=== PATIENT | male | born 1960 | race Caucasian/White ===

== ENCOUNTER 2018-07-13 10:09 | Outpatient (CLI) | payer OTHER, SELFPAY ==
[2018-07-13 11:54] LABS: Cholesterol 198 mg/dL (50-200); Glucose 99 mg/dL (70-100); HDL Cholesterol 49 mg/dL (40-60); LDL CHOLESTEROL 133 mg/dL (<100); Triglyceride 68 mg/dL (30-150)
[2018-07-13 12:05] LABS: Uric Acid 7.1 mg/dL (3.5-7.2)
== END 2018-07-13 10:29 ==
PROVIDERS: PCP General Practice; Visit Provider General Practice
DX: R73.09 Other abnormal glucose (principal); M10.9 Gout, unspecified
CPT/HCPCS: 36415; 80061; 82947; 83721; 84550

== ENCOUNTER 2018-10-24 14:21 | Outpatient (CLI) | payer OTHER, SELFPAY ==
[2018-10-24 14:55] LABS: HCT 40.3 % (40.0-50.0); HGB 13.1 g/dL (13.5-17.5); Mean Corp. HGB Concentration 32.5 g/dL (32.0-36.0); Mean Corpuscular Hemoglobin 29.8 pg (27.0-33.0); Mean Corpuscular Volume 91.6 fL (80-95); Mean Platelet Volume 11.5 fL (8.0-11.0); Platelet Count 239 x1000/uL (130-400); RBC Distribution Width 14.2 % (11.8-14.1); White Blood Cell Count 6.55 k/cumm (4.4-10.8)
[2018-10-24 15:41] LABS: Uric Acid 7.3 mg/dL (3.5-7.2)
[2018-10-24 16:19] LABS: ESR 62 MM/HR (1-20)
[2018-10-25 10:44] LABS: Rheumatoid Factor 18 IU/mL (<12.5)
[2018-10-25 11:31] LABS: ANA Interpretation Negative (NEGAT)
== END 2018-10-24 14:41 ==
PROVIDERS: PCP General Practice; Visit Provider General Practice
DX: M19.90 Unspecified osteoarthritis, unspecified site (principal)
CPT/HCPCS: 36415; 85027; 85652; 84550; 86038; 86431

== ENCOUNTER 2018-11-21 10:06 | Outpatient (CLI) | payer OTHER, SELFPAY ==
[2018-11-22 10:09] LABS: PSA, Screening 28.6 ng/ml (0-3.5)
== END 2018-11-21 10:26 ==
PROVIDERS: PCP General Practice; Visit Provider General Practice
DX: R30.0 Dysuria (principal); N39.0 Urinary tract infection, site not specified; Z12.5 Encounter for screening for malignant neoplasm of prostate
CPT/HCPCS: 36415; 84153; 81003; 87086

== ENCOUNTER 2018-11-21 10:46 | Outpatient (REF) | payer OTHER, SELFPAY ==
[2018-11-21 13:12] LABS: Bilirubin Negative (Negative); Blood Small (Negative); Clarity Sl Cloudy; Glucose Negative (Negative); Ketones Negative (Negative); Leukocyte Esterase Moderate (Negative); Nitrite Negative (Negative); Urobilinogen 0.2 EU/dL (Up TO 0.2); pH 5.5 (5-8)
[2018-11-21 13:52] LABS: Bacteria Moderate HPF (Negative); C & S Indicated? C&S Done As Ordered; Casts Negative LPF (Negative); Crystals Negative HPF (Negative); Epithelial Cells Few HPF (Negative); Mucus Negative (Negative); WBC >50 HPF (0-5)
== END 2018-11-21 11:06 ==
LOC: LBN 10:46
PROVIDERS: PCP General Practice; Visit Provider General Practice
DX: R30.0 Dysuria (principal); N39.0 Urinary tract infection, site not specified
CPT/HCPCS: 87077; 81003; 81015; 87086; 87186

== ENCOUNTER 2019-01-13 16:18 | Outpatient (CLI) | payer OTHER, SELFPAY ==
[2019-01-15 18:48] LABS: Free PSA/PSA Ratio 0.06 ratio
== END 2019-01-13 16:38 ==
PROVIDERS: PCP General Practice; Visit Provider Urology
DX: R97.20 Elevated prostate specific antigen [PSA] (principal)
CPT/HCPCS: 36415; 84154

== ENCOUNTER 2020-04-30 02:54 | Outpatient (CLI) | payer OTHER, SELFPAY ==
[2020-04-30 08:32] LABS: Anion Gap 8.9 mmol/L (3-11); BUN 10 mg/dL (7-18); CO2 28.1 mmol/L (21.0-32.0); CREATININE 0.85 mg/dL (0.70-1.30); Calculated LDL 151 mg/dL (<100); Chloride 103 mmol/L (98-107); Cholesterol 240 mg/dL (<200); Glucose 102 mg/dL (74-106); HDL Cholesterol 53 mg/dL (40-60); Potassium 4.6 mmol/L (3.5-5.1); Sodium 140 mmol/L (136-145); Triglyceride 184 mg/dL (<150)
[2020-04-30 08:55] LABS: Uric Acid 7.3 mg/dL (3.5-7.2)
== END 2020-04-30 03:14 ==
PROVIDERS: PCP Internal Medicine; Visit Provider Internal Medicine
DX: E78.00 Pure hypercholesterolemia, unspecified (principal); M10.9 Gout, unspecified
CPT/HCPCS: 36415; 80048; 80061; 84550

== ENCOUNTER 2020-11-05 02:00 | Outpatient (CLI) | payer OTHER, SELFPAY ==
[2020-11-05 09:14] LABS: Uric Acid 7.5 mg/dL (3.5-7.2)
== END 2020-11-05 02:01 | disposition home or self-care (01) ==
LOC: LBO 02:00
PROVIDERS: PCP Internal Medicine; Visit Provider Internal Medicine
DX: M10.9 Gout, unspecified (principal)
CPT/HCPCS: 36415; 84550

== ENCOUNTER 2021-01-18 09:39 | Outpatient (CLI) | payer OTHER, SELFPAY ==
[2021-01-18 12:13] LABS: Uric Acid 4.8 mg/dL (3.5-7.2)
== END 2021-01-18 09:40 | disposition home or self-care (01) ==
LOC: LBO 09:41
PROVIDERS: PCP Internal Medicine; Visit Provider Internal Medicine
DX: M10.9 Gout, unspecified (principal)
CPT/HCPCS: 36415; 84550

== ENCOUNTER 2021-03-11 19:12 | Outpatient (REF) | payer OTHER, SELFPAY | END 2021-03-11 19:13 | disposition home or self-care (01) | LOC: LBN 19:12 | PROVIDERS: PCP Internal Medicine; Visit Provider Urology | DX: C61 Malignant neoplasm of prostate (principal) | CPT/HCPCS: 87086 ==

== ENCOUNTER 2021-11-03 03:45 | Outpatient (CLI) | payer OTHER, SELFPAY ==
[2021-11-07 11:45] LABS: PSA, Ultrasensitive <0.01 ng/mL (<= 4.5)
== END 2021-11-03 03:46 | disposition home or self-care (01) ==
LOC: LBO 03:45
PROVIDERS: PCP Internal Medicine; Visit Provider Urology
DX: C61 Malignant neoplasm of prostate (principal)
CPT/HCPCS: 36415; 84153

== ENCOUNTER 2021-12-02 01:53 | Outpatient (CLI) | payer OTHER, SELFPAY ==
[2021-12-02 14:05] LABS: Anion Gap 11.8 mmol/L (3-11); BUN 11 mg/dL (7-18); CO2 26.2 mmol/L (21.0-32.0); CREATININE 0.8 mg/dL (0.70-1.30); Calcium 9.1 mg/dL (8.5-10.1); Calculated LDL 184 mg/dL (<100); Chloride 101 mmol/L (98-107); Cholesterol 269 mg/dL (<200); Glucose 100 mg/dL (74-106); HDL Cholesterol 62 mg/dL (40-60); Potassium 4.5 mmol/L (3.5-5.1); Sodium 139 mmol/L (136-145); Triglyceride 118 mg/dL (<150)
[2021-12-02 14:17] LABS: Uric Acid 4.4 mg/dL (3.5-7.2)
== END 2021-12-02 01:54 | disposition home or self-care (01) ==
LOC: LBO 01:53
PROVIDERS: PCP Internal Medicine; Visit Provider Internal Medicine
DX: E78.00 Pure hypercholesterolemia, unspecified (principal); M10.9 Gout, unspecified; R03.0 Elevated blood-pressure reading, without diagnosis of hypertension
CPT/HCPCS: 36415; 80048; 80061; 84550

== ENCOUNTER 2022-05-11 14:52 | Outpatient (REF) | payer OTHER, SELFPAY ==
[2022-05-11 15:17] LABS: Abs Immature Grans 0.01 10^3/uL (0.0-0.06); Absolute Eosinophil Count 0.31 10^3/uL (0.0-0.7); Absolute Lymphocyte Count 2.35 10^3/uL (1.2-3.4); Absolute Monocyte Count 0.65 10^3/uL (0.1-0.8); Absolute Neutrophil Count 3.98 10^3/uL (1.2-6.7); Basophils % 1.4; Eosinophils % 4.2; HCT 42.5 % (40.0-50.0); HGB 14.1 g/dL (13.5-17.5); Immature Grans % 0.1; Lymphocytes % 31.8; MCH 30.7 pg (27.0-33.0); MCHC 33.2 % (32.0-36.0); MCV 92 fL (80-95); Monocytes % 8.8; Neutrophils % 53.7; RDW 12.5 % (11.8-14.1); RDW-SD 42.5 fL
[2022-05-11 15:43] LABS: Ferritin 80 ng/mL (26-388)
== END 2022-05-11 14:53 | disposition home or self-care (01) ==
LOC: LBN 14:52
PROVIDERS: PCP Internal Medicine; Visit Provider Surgery
DX: D64.9 Anemia, unspecified (principal); E78.5 Hyperlipidemia, unspecified; F17.200 Nicotine dependence, unspecified, uncomplicated; K21.9 Gastro-esophageal reflux disease without esophagitis
CPT/HCPCS: 82728; 85025

== ENCOUNTER 2022-12-18 04:18 | Outpatient (CLI) | payer OTHER, SELFPAY ==
[2022-12-18 08:53] LABS: BUN 12 mg/dL (7-18); CREATININE 0.8 mg/dL (0.70-1.30); Calculated LDL 89 mg/dL (<100); Chloride 104 mmol/L (98-107); Cholesterol 195 mg/dL (<200); Estimated GFR 99.44 (mL/min/1.73m2); Glucose 113 mg/dL (74-106); HDL Cholesterol 50 mg/dL (40-60); Potassium 3.5 mmol/L (3.5-5.1); Sodium 140 mmol/L (136-145); Triglyceride 280 mg/dL (<150)
[2022-12-20 11:38] LABS: PSA, Ultrasensitive <0.01 ng/mL (<= 4.5)
== END 2022-12-18 04:19 | disposition home or self-care (01) ==
PROVIDERS: PCP Nurse Practitioner Adult Health; Referring Provider Nurse Practitioner Adult Health; Visit Provider Urology
DX: E78.5 Hyperlipidemia, unspecified (principal); M10.9 Gout, unspecified; C61 Malignant neoplasm of prostate
CPT/HCPCS: 36415; 80048; 80061; 84153

== ENCOUNTER 2023-04-18 08:21 | Day surgery (SDC) | payer OTHER, SELFPAY ==
[2023-04-18 08:31] VITALS: BP 117/78; PULSE 87; RESP 17; TEMP 36.6; O2SAT 94
[2023-04-18] MEDS: Lactated Ringers 1,000 ML 80 ML IV (08:46)
--- NOTE | 2023-04-18 10:17 | SCONE_ITS ---
Date of service: 04/18/23 Time of Service: Assessment and Plan Assessment and plan (1) Encounter for colonoscopy due to history of adenomatous colonic polyps: Status: Acute Assessment and plan: Colonoscopy History of Present Illness Narrative: 62-year-old man is here for a follow-up colonoscopy. He has had 2 prior colonoscopies and did have a polyp on the first on but his last colonoscopy was normal. He does not have any symptoms. Only intra-abdominal surgical history is that of a prostatectomy. There is no family history of colon cancer. 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) [place] cardiac risk 10-20% in next 10 years (Chronic) 14% 2021 Smoker (Chronic ~2021) 9-10 pk yrs in 2021 Gout (Chronic) GERD (gastroesophageal reflux disease) (Chronic) Hyperlipidemia (Chronic) Medical History Erectile dysfunction following radical prostatectomy 09/05/22 Urology COVID (~08/2022) 09/03/22 Anemia 2019--r/t prostate cancer Malignant neoplasm of prostate prostatectomy; pT2 N0N0,grade group 2, negative margins Left leg pain h/o fracture Elevated PSA Duodenal ulcer (~2001) Esophagitis History of fracture Left Tib-Fib Acne Surgical History S/P [place]ctomy (03/23/21) [place] [facility] [place]aden[place] History of inguinal herniorrhaphy (~1988) Left Family History Father , ~71yo; s/p CABD & valve replacement Prostate cancer Depression Heart disease Mother , OF CANCER BUT TYPE UNKNOWN Diabetes Sister No problems noted. Sister No problems noted. Brother , MVA IN HIS 30's No problems noted. Social History (Updated 09/06/23 @ 10:25 by JOEL Copeland) Smoking/Tobacco Use Status: Current every day Tobacco Type: cigarettes Tobacco: How many years used: 30 Quit status: has quit before Smoking risk assessment performed?: Yes Alcohol Intake: current Alcohol Intake frequency: a few times a week Substance use type: does not use Adopted: No Caregiver/Support person: No Foster care: No Household members: spouse Housing: house Number of Children: 3 number of grandchildren: 3 Communication Needs: Corrective Lenses Education Level: high school Do you need help understanding health information?: Never current occupation: [employer] Pets and animals: Yes Pets and animals: cat(s) Sexually active: Yes Do you think of yourself as: straight/heterosexual Current gender identity: male What is your relationship status?: How often do you talk on the phone with friends or family?: three or more times per week How often do you get together with friends or relatives?: twice per week Do you belong to any clubs or organized social groups?: no Panel score (0-1 are the most socially isolated patients): 2 What type of physical activity do you participate in: none Seatbelt use: always Helmet use: Yes Drive intox or ride w/intox city route driver: No Working smoke detector in home: Yes Fire extinguisher in home: Yes Carbon monox detector in home: Yes Do you feel safe at home: Yes Do you feel safe in your relationship?: Yes Exam Narrative Exam Narrative: General: Nontoxic, comfortable and interactive Neuro: Alert and oriented x3 Psych: Good mood and affect, good insight and understanding into his condition Chest: Nonlabored breathing Heart: Regular Results Last Vital Signs Temp 97.9 F 04/18/23 08:31 Pulse 87 04/18/23 08:31 Resp 17 04/18/23 08:31 BP 117/78 04/18/23 08:31 Pulse Ox 94 04/18/23 08:31
--- NOTE | 2023-04-18 10:27 | ANES.PREOP_ITS ---
General Info Date of Service Date Performed: 04/18/23 Height: 5 ft 10 in Weight: 92.5 kg Body Mass Index (BMI): 29.2 Surgical Procedure: Operation Date: 04/18/23 09:50 Proposed Procedure Side Surgeon p Colonoscopy Gilles Valenzuela MD Actual Procedure Side Surgeon p Colonoscopy Not Applicable Gilles Valenzuela MD Meds Allergies and Home Medications Allergies Allergy/AdvReac Type Severity Reaction Status Date / Time No Known Allergies Allergy Verified 04/18/23 08:38 Home Medication Medication Instructions Recorded aspirin 81 mg tablet,delayed 81 mg PO DAILY 04/16/20 release omeprazole magnesium 20 mg 20 mg PO DAILY 04/16/20 tablet,delayed release (Prilosec OTC) bisacodyl 5 mg tablet,delayed 5 mg PO ONCE colonscopy bowel prep 05/11/22 release (Dulcolax (bisacodyl)) #4 tabs polyethylene glycol 3350 17 238 g PO ONCE colonoscopy prep 05/11/22 gram/dose oral powder #238 grams allopurinol 300 mg tablet 300 mg PO DAILY #90 tabs 06/05/22 sildenafil (pulm.hypertension) 20 20 mg PO DIRECTED PRN 09/05/22 mg tablet (Revatio) atorvastatin 40 mg tablet 40 mg PO DAILY #90 tabs 12/07/22 Current Visit Medications: Current Medications Generic Name Dose Route Start Last Admin Trade Name Ebenezerq PRN Reason Stop Dose Admin Ringer's Solution 1,000 mls @ 80 mls/hr 04/18/23 06:00 04/18/23 08:46 IV 05/17/23 23:59 80 mls/hr INFUSION DIANE Administration IV Miscellaneous Supplies 1 each 04/18/23 06:00 Iv Access IV 05/17/23 23:59 DIRECTED DIANE Sodium Chloride 0 ml 04/18/23 06:00 Normal Saline Flush 10 Ml Syr IV 05/17/23 23:59 PRN PRN Sodium Chloride 0 ml 04/18/23 06:00 Normal Saline 10 Ml Vial IJ 05/17/23 23:59 DIRECTED PRN Sterile Water 0 ml 04/18/23 06:00 Water,Injection,Sterile 10 Ml Vial IJ 05/17/23 23:59 DIRECTED PRN PFSH Active Problems Active Problems: Problem Status Onset Code Hypertriglyceridemia ~11/2022 E78.1 IFG (impaired fasting glucose) ~11/2022 R73.01 History of prostate cancer ~2018 Z85.46 Encounter for colonoscopy due to history of adenomatous colonic polyps Z12.11, Z86.010 Elevated blood pressure reading without diagnosis of hypertension R03.0 Congenital pes planus of both feet Q66.51, Q66.52 [place] cardiac risk 10-20% in next 10 years Z91.89 Smoker ~2021 F17.200 Gout M10.9 GERD (gastroesophageal reflux disease) K21.9 Hyperlipidemia E78.5 Medical History Medical History Erectile dysfunction following radical prostatectomy 09/05/22 Urology COVID (~08/2022) 09/03/22 Anemia 2019--r/t prostate cancer Malignant neoplasm of prostate prostatectomy; pT2 N0N0,grade group 2, negative margins Left leg pain h/o fracture Elevated PSA Duodenal ulcer (~2001) Esophagitis History of fracture Left Tib-Fib Acne Surgical History Surgical History S/P [place] (03/23/21) [place] [facility] [place]aden[place] History of inguinal herniorrhaphy (~1988) Left Tobacco Smoking/Tobacco Use Status: Current every day Tobacco Type: cigarettes Smoking cigarettes per day: 5 Passive smoking exposure: No Alcohol Alcohol Intake: current Alcohol intake frequency: a few times a week Substance Use Substance use type: does not use Vital Signs and Lab Results Vital Signs Most Recent Vital Signs in EMR: Most Recent Vital Signs Temp Pulse Resp BP Pulse Ox 36.6 C 87 17 117/78 94 04/18/23 08:31 04/18/23 08:31 04/18/23 08:31 04/18/23 08:31 04/18/23 08:31 Lab Results Blood Type / Crossmatch: No Data to Display Complete Blood Count: No Data to Display Complete Metabolic Panel: No Data to Display Liver Function Panel: No Data to Display Coagulation Panel: No Data to Display Cardiac Panel: No Data to Display Arterial Blood Gas: No Data to Display Venous Blood Gas: No Data to Display Pancreas Panel: No Data to Display Thyroid Panel: No Data to Display Infectious Disease: No Data to Display Blood Cultures: No Data to Display Toxicology Panel: No Data to Display Anesthesia Assessment and Plan Anesthesia History Personal History: No History of Anesthesia Complications Family History: No Family History of Anesthesia Complications Exercise Tolerance Exercise Tolerance: Metabolic Equivalents>4 Pertinent Negatives Pertinent Negatives: No Symptoms of GERD Cardiac & Pulmonary Exam Cardiac Exam: Normal S1/S2 Heart Sounds Pulmonary Exam: Clear Bilateral Breath Sounds Implantable Cardiac Device Does patient have a Pacemaker or an ICD?: No Airway Exam Known Difficult Airway: No Mallampati Class: 2 Mouth Opening: Normal (> 3cm) Thyromental Distance: Greater than 3 cm Neck Range of Motion: Full ROM Neck Circumference: Normal Teeth Condition: Normal Dentition ASA Classification ASA Score: ASA 2 Emergency Case?: No NPO Status NPO Status: NPO Clears >2 hours, Solids >8 hours Anesthesia Plan Resuscitation Status: Full Code Anesthesia Technique: General Anesthesia Airway Planned: Natural Airway Monitors Used: Standard Monitors
[2023-04-18 10:28] VITALS: BMI 29.2
--- NOTE | 2023-04-18 10:59 | BOWEL_PTH ---
PATIENT: Roberto Granados LOC: [facility] U#:[id number] AGE/SX: 62/M ROOM: RE04/18/[address]: Gilles Valenzuela : 1960 BED: DIS: 04/18/2023 SPEC #: [id number] RECD: 04/18/23 12:38 STATUS: DARNELL REQ #: [id number] SUSSY: 04/18/23 10:[address]: Gilles Valenzuela DEPT: Surgical Specimen RECD BY: Telma Casiano ENTERED: 04/18/23 12:39 SP TYPE: Bowel OTHR DR: Alley Shanks APRN Tissues: 1 - BIOPSY BOWEL 2 - BIOPSY BOWEL Procedures: GROSS AND MICRO LEVEL 4 Comments: [id number]
[2023-04-18 11:18] VITALS: BP 102/83; PULSE 72; RESP 18; TEMP 36.4; O2SAT 97
--- NOTE | 2023-04-18 11:24 | W.COLOREPORT ---
Date of service: 04/18/23 Time of Service: 11:24 Colonoscopy Report Procedure Description: Procedures performed: 1. Colonoscopy with snare polypectomy x1 2. Cold forceps polypectomy x1 Preoperative diagnosis: Surveillance colonoscopy, colon polyps Postoperative diagnosis: Colon polyps, moderate sigmoid diverticulosis, mild grade 1 internal hemorrhoids Surgeon: Laura Valenzuela Anesthesia: Catalino Indication for procedure: Patient is a 62-year-old man with a history of an adenomatous polyp removed in the past, no family history of colon cancer and no symptoms. Last colonoscopy was normal. Findings: Normal TI. In the transverse colon a 3-5 mm sessile polyp was removed piecemeal with cold forceps technique. In the descending colon another 3-5 mm sessile polyp was removed with hot snare technique. Significant diverticular disease focused only in the sigmoid colon region with no active diverticulitis. Mild grade 1 internal hemorrhoid disease seen Surveillance/follow-up recommendations: 3-10 years depending on path results. If sessile serrated or villous histology (not suspected) then 3 years but otherwise 7 to 10 years of simple adenomas Complications: None Blood loss: Minimal Specimens:?? YES Quality of Prep:?? Good Procedure in detail: Written consent was obtained from the patient who was in agreement with the risks, benefits and indications of the procedure.? We went to the endoscopy suite and laid the patient in left lateral decubitus position.? Anesthesia was administered which was tolerated well.? A timeout was performed and when we are all in agreement we began the procedure. Digital rectal exam and visual examination was performed and within normal limits.? A well?lubricated colonoscope was advanced without difficulty all the way to the cecum identified by the ileocecal valve, and triangular folds and appendiceal orifice.? The terminal ileum was briefly intubated and look normal. The scope was then slowly withdrawn.?? Retroflexion was performed in the rectum.? The findings/interventions are noted above. The scope was then removed and the patient tolerated the procedure well and was then taken back to the PACU in hemodynamically stable condition.
--- NOTE | 2023-04-18 11:29 | W.ANESPOSTOP ---
Postoperative Evaluation Date, Time and Location Date Performed: 04/18/23 Time Performed: 11:29 Patient Location: Day Surgery Unit Vital Signs Most Recent Imported Vital Signs: Most Recent Vital Signs Temp Pulse Resp BP Pulse Ox 36.4 C L 72 18 102/83 97 04/18/23 11:18 04/18/23 11:18 04/18/23 11:18 04/18/23 11:18 04/18/23 11:18 Pain Score Most Recent Pain Score: Most Recent Pain Score Pain Level 0 04/18/23 11:18 Assessment Mental Status: Awake (Alert & Oriented to Patient Baseline) Airway and Respiratory Function: Patent airway with normal (patient baseline) respiratory exam Cardiovascular Function: Hemodynamically Stable Hydration Status: Adequately Hydrated Nausea & Vomiting: No Nausea or Vomiting Pain: Pt. Denies Any Pain Peripheral Nerve Block: Patient did not receive a nerve block
--- NOTE | 2023-04-18 11:31 | W.PM.DSUDISC ---
Date of service: 04/18/23 Time of Service: 11:31 Discharge Plan Disposition Patient Disposition: Home Condition: Good Discharge Details Attending Provider: Gilles Valenzuela Primary Care Provider: Alley Shanks Home Meds and New Rx's Prescriptions: No Action polyethylene glycol 3350 17 gram/dose powder 238 g PO ONCE Qty: 238 0RF Rx Instructions: take per colonoscopy instructions bisacodyl [Dulcolax (bisacodyl)] 5 mg tablet,delayed release (DR/EC) 5 mg PO ONCE Qty: 4 0RF Rx Instructions: take per colonoscopy instructions allopurinol 300 mg tablet 300 mg PO DAILY Qty: 90 3RF atorvastatin 40 mg tablet 40 mg PO DAILY Qty: 90 3RF omeprazole magnesium [Prilosec OTC] 20 mg tablet,delayed release (DR/EC) 20 mg PO DAILY aspirin 81 mg tablet,delayed release (DR/EC) 81 mg PO DAILY sildenafil (pulm.hypertension) [Revatio] 20 mg tablet 20 mg PO DIRECTED PRN Rx Instructions: 1-5 tabs po daily as needed prior to sexual activity. Can increase by one tab per day up to 5 tabs Discharge Instructions Stand Alone Forms: Colonoscopy Post Instructions Activity:: Activity as Tolerated Diet:: As Tolerated DS: Diagnosis Discharge Diagnosis (1) Encounter for colonoscopy due to history of adenomatous colonic polyps: Status: Acute Asessment and Plan: 2 small polyps were found and removed today. Depending on the type that they are dictates when your next colonoscopy should be done. Anywhere from 3 to 10 years. You will get called in the next couple of weeks to inform you but probably 7 to 10 years will be recommended. Mild diverticular disease was found today which is extremely common, benign and nothing needs to be done about it unless you are having symptoms from it. Mild hemorrhoidal disease was seen today. This is also benign and nothing needs to be done about it as long as you are not having symptoms about it.
[2023-04-18 11:33] VITALS: BP 119/77; PULSE 72; RESP 18; TEMP 36.3; O2SAT 95
== END 2023-04-18 11:40 | disposition home or self-care (01) ==
PROVIDERS: PCP Nurse Practitioner Adult Health; Visit Provider Student in an Organized Health Care Education/Training Program
PROC: 0DJD8ZZ Inspection of Lower Intestinal Tract, Via Natural or Artificial Opening Endoscopic (ICD-10-PCS; CPT 45378; principal; 2023-04-18 09:45)
DX: Z12.11 Encounter for screening for malignant neoplasm of colon (principal); Z86.010 Personal history of colon polyps; K21.9 Gastro-esophageal reflux disease without esophagitis; K64.0 First degree hemorrhoids; K57.30 Diverticulosis of large intestine without perforation or abscess without bleeding; Z85.46 Personal history of malignant neoplasm of prostate; F17.200 Nicotine dependence, unspecified, uncomplicated; D12.3 Benign neoplasm of transverse colon
CPT/HCPCS: 45385; 45380; 00123; 88305; J2001

== ENCOUNTER → 2023-05-28 19:05 | Outpatient (CLI) | payer OTHER, SELFPAY ==
--- NOTE | 2023-05-28 13:30 | DI.RAD_ITS ---
Exam(s) XR CHEST 2V PA LATERAL EXAM: XR CHEST 2V PA LATERAL CLINICAL HISTORY: cough R05.9 TECHNIQUE: 2D digital imaging was performed of the chest. Two images were obtained. PA and lateral views were obtained. COMPARISON: No exams were available for comparison FINDINGS: MEDIASTINUM: Normal. HEART: Normal. PULMONARY VASCULATURE: Normal. LUNGS: Clear. PLEURAL SPACE: No pleural effusion or pneumothorax. BONE:Within normal limits for the patient's age. OTHER FINDINGS:Normal. IMPRESSION: No acute pulmonary findings. DATA REPOSITORY: RADIATION DOSE DELIVERED:
== END ==
PROVIDERS: PCP Nurse Practitioner Adult Health; Visit Provider Emergency Medicine
DX: R05.9 Cough, unspecified (principal)
CPT/HCPCS: 71046

== ENCOUNTER → 2023-06-26 00:47 | Outpatient (CLI) | payer OTHER, SELFPAY ==
[2023-06-26 14:00] LABS: CREATININE 0.8 mg/dL (0.70-1.30); Estimated GFR 98.83 (mL/min/1.73m2)
--- NOTE | 2023-06-26 14:12 | DI.RAD_ITS ---
Exam(s) XR SINUS COMPLETE 3+V EXAM: XR SINUS COMPLETE 3+V CLINICAL HISTORY: cough, R05.9 TECHNIQUE: 2D digital imaging was performed. COMPARISON: No exams were available for comparison FINDINGS: No visible sinus opacification or air-fluid levels. No evidence of fracture or bony erosions. IMPRESSION: Negative sinus series
[2023-06-26] MEDS: Omnipaque 350 MG/ML 100 ML BTL 70 ML IJ (15:21)
[2023-06-26] MEDS: Normal Saline - Diluent 50 ML VIAL IJ (15:21)
--- NOTE | 2023-06-26 15:30 | DI.CT_ITS ---
Exam(s) CT CHEST W EXAM: CT CHEST W CLINICAL HISTORY: cough, CHEST PAIN MADE WORSE BY BREATHING, R07.1, R05.9 TECHNIQUE: Imaging Protocol: Axial computed tomography images with coronal and sagittal reformatted images were created and reviewed CONTRAST MATERIAL: Intravenous: Omnipaque 350 Contrast volume:70 ml. COMPARISON: CR XR CHEST 2V PA LATERAL from 05/28/2023 FINDINGS: Pulmonary parenchyma: Minimal basilar scarring or atelectasis. No consolidation. No dominant measur able mass. Tracheobronchial tree: No bronchiectasis or mucous plugging. Mediastinum and Tammy: No dominant adenopathy or fluid collection. Pleura: No effusion. No pneumothorax. Heart: The heart is mildly dilated. Mild coronary artery calcifications are seen. Aorta: Thoracic aorta non-dilated. Mild atherosclerotic changes. Upper abdomen: No acute findings.. Enlarged fatty liver. Bones: Degenerative changes in the spine. Soft tissues: Unremarkable. IMPRESSION: No acute pulmonary abnormality. RADIATION DOSE DELIVERED: Total DLP DATA REPOSITORY: All CT scans at this facility are submitted to the National Radiology Data Registry (NRDR) Dose Index Registry (DIR) with the [employer] (A[employer]). RADIATION OPTIMIZATION: All CT scans at this facility use at least one of these dose optimization te chniques: automated exposure control; mA and/or kV adjustment per patient size (includes targeted exa ms where dose is matched to clinical indication); or iterative reconstruction.
== END ==
PROVIDERS: PCP Nurse Practitioner Adult Health; Visit Provider Emergency Medicine
DX: R05.9 Cough, unspecified (principal); R07.1 Chest pain on breathing
CPT/HCPCS: 70220; 71260; 82565; J3490

== ENCOUNTER 2023-06-26 04:21 | Outpatient (CLI) | payer OTHER, SELFPAY ==
[2023-06-26] MEDS: Inhaler, Assist Device 1 EACH MC (16:42)
[2023-06-26] MEDS: Levalbuterol HFA 15 GM INH 4 PUFF IH (16:42)
--- NOTE | 2023-06-28 12:11 | W.PFT ---
Date of service: 06/26/23 Time of Service: 15:37 Pulmonary Function Test Result Indications: Chronic cough Interpretation Spirometry: No airflow limitation. No bronchodilator response. Lung Volumes: Normal lung volumes Diffusion Capacity: Normal diffusion Airway Pressure: Normal airways resistance Impression Normal pulmonary function. Clinical Correlation therefore is recommended.
== END 2023-06-26 04:22 | disposition home or self-care (01) ==
LOC: RT 04:21
PROVIDERS: PCP Nurse Practitioner Adult Health; Visit Provider Emergency Medicine
DX: R05.3 Chronic cough (principal)
CPT/HCPCS: 94060; 94726; 94729

== ENCOUNTER 2023-07-17 05:02 | Outpatient (CLI) | payer OTHER, SELFPAY ==
--- NOTE | 2023-07-17 11:55 | W.PFT ---
Date of service: 07/17/23 Time of Service: 10:01 Pulmonary Function Test Result Indications: Cough Interpretation Spirometry: There is no airflow limitation at baseline. There was a 16% decrease in FEV1 with administration of 16mg/mL methacholine. Impression Normal spirometry. Negative methacholine challenge testing. Clinical Correlation therefore is recommended.
[2023-07-17] MEDS: Methacholine 100 MG VIAL IH (11:58)
[2023-07-17] MEDS: Inhaler, Assist Device 1 EACH MC (11:59)
[2023-07-17] MEDS: Albuterol HFA 18 GM 200 PUFF INH IH (11:59)
== END 2023-07-17 05:03 | disposition home or self-care (01) ==
LOC: RT 05:02
PROVIDERS: PCP Nurse Practitioner Adult Health; Visit Provider Physician Assistant Surgical
DX: R05.9 Cough, unspecified (principal); R94.2 Abnormal results of pulmonary function studies
CPT/HCPCS: 94060; 94070; J7674

== ENCOUNTER 2024-03-17 04:44 | Outpatient (CLI) | payer OTHER, SELFPAY ==
[2024-03-17 09:33] LABS: ALT 38 U/L (16-63); AST 37 U/L (15-37); Albumin 3.9 g/dL (3.4-5.0); Alkaline Phosphatase 78 U/L (46-116); Anion Gap 9.4 mmol/L (3-11); BUN 9 mg/dL (7-18); Bilirubin, Total 0.97 mg/dL (0.2-1.0); CO2 26.6 mmol/L (21.0-32.0); CREATININE 0.9 mg/dL (0.70-1.30); Calcium 9.5 mg/dL (8.5-10.1); Calculated LDL 82 mg/dL (<100); Chloride 102 mmol/L (98-107); Cholesterol 164 mg/dL (<200); Estimated GFR 95.37 (mL/min/1.73m2); Glucose 115 mg/dL (74-106); HDL Cholesterol 68 mg/dL (40-60); Potassium 4.4 mmol/L (3.5-5.1); Sodium 138 mmol/L (136-145); TSH (W/Ref FT4) 1.18 uIU/mL (0.36-3.74); Total Protein 7.5 g/dL (6.4-8.2); Triglyceride 70 mg/dL (<150)
[2024-03-17 09:44] LABS: Uric Acid 5.7 mg/dL (3.5-7.2)
[2024-03-17 18:10] LABS: PSA, Screening <0.1 ng/mL (<=4.5)
== END 2024-03-17 04:45 | disposition home or self-care (01) ==
LOC: LBO 04:44
PROVIDERS: PCP Nurse Practitioner Adult Health; Referring Provider Nurse Practitioner Adult Health; Visit Provider Nurse Practitioner Adult Health
DX: E78.2 Mixed hyperlipidemia (principal); E78.1 Pure hyperglyceridemia; R73.01 Impaired fasting glucose; Z85.46 Personal history of malignant neoplasm of prostate
CPT/HCPCS: 36415; 80053; 80061; 84153; 83036; 84443; 84550

== ENCOUNTER 2025-04-20 03:37 | Outpatient (CLI) | payer OTHER, SELFPAY ==
[2025-04-20 07:42] LABS: Hemoglobin A1C 6.1 % (<5.7)
[2025-04-20 07:45] LABS: ALT 34 U/L (16-63); AST 25 U/L (15-37); Albumin 3.8 g/dL (3.4-5.0); Alkaline Phosphatase 83 U/L (46-116); Anion Gap 11.2 mmol/L (3-11); BUN 14 mg/dL (7-18); Bilirubin, Total 0.6 mg/dL (0.2-1.0); CO2 26.8 mmol/L (21.0-32.0); Calcium 9.5 mg/dL (8.5-10.1); Calculated LDL 94 mg/dL (<100); Chloride 102 mmol/L (98-107); Cholesterol 181 mg/dL (<200); Estimated GFR 94.78 (mL/min/1.73m2); Glucose 129 mg/dL (74-106); HDL Cholesterol 67 mg/dL (>or=40); Potassium 4.0 mmol/L (3.5-5.1); Sodium 140 mmol/L (136-145); Total Protein 7.7 g/dL (6.4-8.2); Triglyceride 104 mg/dL (<150)
== END 2025-04-20 03:38 | disposition home or self-care (01) ==
LOC: LBO 03:37
PROVIDERS: Absent Provider Nurse Practitioner Adult Health; PCP Nurse Practitioner Adult Health; Referring Provider Nurse Practitioner Adult Health; Visit Provider Nurse Practitioner Adult Health
DX: Z85.46 Personal history of malignant neoplasm of prostate (principal); E78.2 Mixed hyperlipidemia; E78.1 Pure hyperglyceridemia; R73.01 Impaired fasting glucose; Z91.89 Other specified personal risk factors, not elsewhere classified
CPT/HCPCS: 36415; 80053; 80061; 84153; 83036